=== PATIENT | male | born 1975 | race Caucasian/White ===

== ENCOUNTER 2025-05-30 07:37 | Outpatient (CLI) | payer MEDICAID, SELFPAY ==
--- OUTSIDE RECORDS SUMMARY | 2021-11-14 09:36 | XMS_ITS | Encounter Summary ---
Author Organization [facility] Address [address] [place] [address] Care Team Providers Care Sock Drier Name Role Phone Aneudy Bryant MD Primary Care Provider Encounter Details Date Type Department Care Team (Late st Contact Info) Description 11/14/2021 10:36 AM EDT Hospital Encounter [facility] PULMONARY & CRITICAL CARE MEDICINE [address] [place] [id number] Social History Tobacco Use Types Packs/Day Years [...] on filedocumented in this encounter Care Teams Sock Drier Relationship Specialty Start Date End Date Aneudy Bryant MD PCP - General Emergency Medicine 11/07/21 documented as of this encounter
--- OUTSIDE RECORDS SUMMARY | 2025-05-30 07:40 | XMS_ITS | Clinical Summary ---
Author Organization [facility] Address [address] [place] [address] Care Team Providers Care Assisted Living Nursing Director Name Role Phone Noris Carroll APRN Primary Care Provider [phone] Allergies No known active allergies Medications montelukast (Singulair) 10 MG tablet TAKE 1 TABLET BY MOUTH ONCE DAILY AT BEDTIME FOR 30 DAYS 03/01/2021 Active cetirizine (ZyrTEC) 10 MG tablet Take 10 mg by mouth 1 (one) time each day. 03/01/2021 Active Stiolto Respimat 2.5-2.5 MCG/ACT aerosol solution inhaler INHALE 2 PUFFS BY MOUTH ONCE DAILY 03/01/2021 Active ProAir HFA 108 (90 Base) MCG/ACT inhaler INHALE 1 PUFF BY MOUTH EVERY 6 HOURS NEEDED 08/28/2020 Active Social History Tobacco Use Types Packs/Day Years Used Date Smoking Tobacco: Every Day Cigarettes Smokeless Tobacco: Former Alcohol Use Standard Drinks/Week Comments Yes 0 (1 standard drink = 0.6 oz pur e alcohol) occasionally PHQ-2 Answer Date Recorded Patient Health Questionnaire-2 Score 0 03/06/2021 Sex and Gender Information Value Date Recorded Sex Assigned at Not on file Legal Sex Male 8:12 PM EDT Gender Identity Not on file Sexual Orientation Not on file Last Filed Vital Signs Vital Sign Reading Time Taken Comments Blood Pressure 110/74 04/21/2021 9:33 AM EDT Pulse 75 04/21/2021 9:33 AM EDT Temperature 36.8 C (98.2 F) 04/21/2021 9:33 AM EDT Respiratory Rate - - Oxygen Saturation 97% 04/21/2021 9:33 AM EDT Inhaled Oxygen Concentration - - Weight 54.7 kg (120 lb 11.2 oz) 04/21/2021 9:33 AM EDT Height 170.2 cm (5' 7 ) 04/21/2021 9:33 AM EDT Body Mass Index 18.9 04/21/2021 9:33 AM EDT Plan of Treatment Health Maintenance Due Date Last Done Comments [facility]-Depression Screening 1973 [facility]-/Child/Adol SDOH Screenings 1975 [facility]- SDOH Screenings 1991 [facility]-Adult SDOH Screenings 1991 [facility]-DTaP,Tdap,and Td Vaccine s (1 - Tdap) 01/25/1992 [facility]-Hepatitis B Vaccines (1 of 3 - 19+ 3-dose series) 01/25/1992 CT Colonography 2018 Colonoscopy 2018 FIT-DNA 2018 FIT 2018 FOBT 2018 Sigmoidoscopy 2018 [facility]-Colorectal Cancer Screening 2018 [facility]-Pneumococcal Vaccine: 50 + Years (1 of 1 - PCV) 2023 [facility]-Zoster Vaccines (1 of 2) 2023 [id number] Vaccine (3 - 2024- season) 2025 02/26/2021, 01/27/2021 [facility]-Influenza Vaccine (#1) 2025 HPV Vaccines Aged Out No longer eligi ble based on patient's age to complete this topic [facility]-HIB Vaccines Aged Out No longer e ligible based on patient's age to complete this topic [facility]-Hepatitis A Vaccines Aged Out No longer eligible based on patient's age to complete this topic [facility]-IPV Vaccines Aged Out No longer e ligible based on patient's age to complete this topic [facility]-Rotavirus Vaccines Aged Out No lo nger eligible based on patient's age to complete this topic Insurance [employer] [place] Care Teams Assisted Living Nursing Director Relationship Specialty Start Date End Date Noris Carroll APRN [address] [place] [address] PCP - General 03/06/21
--- OUTSIDE RECORDS SUMMARY | 2025-05-30 07:40 | XMS_ITS | Clinical Summary ---
Author Organization [facility] Address [address] [place] [address] Care Team Providers Care Supervisor Propellant Charge Loading Name Role Phone Aneudy Bryant MD Primary Care Provider Allergies No known active allergies Medications azithromycin (ZITHROMAX Z-LOS) 250 MG tablet Take 2 tablets the first day, then 1 tablet daily for 4 days. 6 tablet 9 Active formoterol (Perforomist) 20 MCG/2ML nebulizer solution Take 2 mL by nebulization 2 (Two) Times a Day. 60 each 2 Active budesonide (Pulmicort) 0.5 MG/2ML nebulizer solution Take 2 mL by nebulization 2 (Two) Times a Day. Being sent through pharmacy and DME, patient can fill whichever is cheapest 60 each 2 Active albuterol sulfate HFA 108 (90 Base) MCG/ACT inhaler Inhale 2 puffs Every 4 (Four) Hours As Needed for Wheezing or Shortness of Air. 18 g 2 Active tiotropium bromide monohydrate (Spiriva Respimat) 2.5 MCG/ACT aerosol solution inhaler Inhale 2 puffs Daily. 1 each 2 Active Active Problems No known active problems Social History Tobacco Use Types Packs/Day Years Used Date Smoking Tobacco: Every Day Cigarettes 1 30 Smokeless Tobacco: Never Tobacco Cessation:Ready to Q uit: Yes Alcohol Use Standard Drinks/Week Comments Not Currently [...] Sign Reading Time Taken Comments Blood Pressure 108/70 11/14/2021 10:01 AM EDT Pulse 79 11/14/2021 10:01 AM EDT Temperature 37 C (98.6 F) 11/14/2021 10:01 AM EDT Respiratory Rate 18 11/14/2021 10:0 1 AM EDT Oxygen Saturation 97% 11/14/2021 10: 01 AM EDT room air at rest Inhaled Oxygen Concentration - - Weight 49.9 kg (110 lb) 11/14/2021 10:0 1 AM EDT Height 167.6 cm (5' 6 ) 06/13/2019 4:14 PM EST Body Mass Index 17.75 06/13/2019 4:14 PM EST Plan of Treatment Health Maintenance Due Date Last Done Comments TDAP/TD VACCINES (1 - Tdap) 01/25/1992 COLOGUARD 2018 COLON CANCER SCREENING 5 YEAR SIGMOIDOSCOPY 2018 COLONOSCOPY 2018 COLORECTAL CANCER SCREENING 2018 CT COLONOGRAPHY 2018 FECAL OCCULT BLOOD TEST 2018 FIT Testing (1 year) 2018 ANNUAL PHYSICAL 05/04/2019 HEPATITIS C SCREENING 05/04/2019 Pneumococcal Vaccine 50+ (1 of 1 - PCV) 2023 ZOSTER VACCINE (1 of 2) 2023 INFLUENZA VACCINE 02/02/2025 Insurance [employer] Care Teams Supervisor Propellant Charge Loading Relationship Specialty Start Date End Date Aneudy Bryant MD PCP - General Emergency Medicine 11/07/21
--- NOTE | 2025-05-30 09:30 | FL_ITS ---
FINAL REPORT CLINICAL HISTORY: Dysphagia 1:23 FLUORO TIME 13.58 mGy FINDINGS: ESOPHAGRAM Radiation dose in reference to Air-Kerma: 13.58 mGy. HISTORY: Dysphagia. PROCEDURE: The patient ingested barium. Effervescent crystals were also administered. Fluoroscopic spot films were obtained. FINDINGS: The esophagus is normal. There is no hiatal hernia. There is no gastroesophageal reflux. Peristalsis is normal. A 13 mm barium tablet passes through the esophagus and into the stomach without delay. IMPRESSION: Normal esophagram. Reviewed, Interpreted and Dictated by Isha Ruiz MD Transcribed by MASSIEL Kimbruogh Authenticated and [facility]
[2025-05-30] MEDS: E-Z-GASII EFFERVESCENT GRANULES;1PK 1 EACH PO (09:35)
[2025-05-30] MEDS: BARIUM SULFATE(LIQUID E-Z-PAQUE);355ML BOTTLE 355 ML PO (09:35)
[2025-05-30] MEDS: BARIUM SULFATE (E-Z-HD 340GM);135ML BOTTLE 135 ML PO (09:35)
== END 2025-05-30 23:59 | disposition home or self-care (01) ==
LOC: RT 07:38
PROVIDERS: PCP Emergency Medicine; Visit Provider Internal Medicine Pulmonary Disease
DX: R13.10 Dysphagia, unspecified (principal)
CPT/HCPCS: 74220

== ENCOUNTER 2025-06-08 09:36 | Outpatient (CLI) | payer MEDICAID, SELFPAY ==
[2025-06-08] MEDS: ALBUTEROL 0.083% 2.5 MG/3 ML NEB IH (10:46)
== END 2025-06-08 23:59 | disposition home or self-care (01) ==
LOC: RT 09:36
PROVIDERS: PCP Emergency Medicine; Visit Provider Internal Medicine Pulmonary Disease
DX: J44.9 Chronic obstructive pulmonary disease, unspecified (principal); R94.2 Abnormal results of pulmonary function studies
CPT/HCPCS: 94060; 94618; 94726; 94729

== ENCOUNTER 2025-06-11 14:49 | Outpatient (CLI) | payer MEDICAID, SELFPAY | END 2025-06-11 23:59 | disposition home or self-care (01) | LOC: RT 14:49 | PROVIDERS: PCP Emergency Medicine; Visit Provider Nurse Practitioner | DX: R94.31 Abnormal electrocardiogram [ECG] [EKG] (principal); R06.00 Dyspnea, unspecified; R00.2 Palpitations ==

== ENCOUNTER 2025-07-04 07:42 | Outpatient (CLI) | payer MEDICAID, SELFPAY ==
--- OUTSIDE RECORDS SUMMARY | 2021-11-14 09:36 | XMS_ITS | Encounter Summary ---
Author Organization [facility] Address [address] [place] [address] Care Team Providers Care Venetian Blind Worker Name Role Phone Aneudy Bryant MD Primary Care Provider [phone] Encounter Details Date Type Department Care Team (Late st Contact Info) Description 11/14/2021 10:36 AM EDT Hospital Encounter [facility] PULMONARY & CRITICAL CARE MEDICINE [address] [place] [id number] Social History Tobacco Use Types Packs/Day Years Used Date Smoking Tobacco: Every Day Cigarettes 1 30 Smokeless Tobacco: Never Alcohol Use Standard Drinks/Week Comments Not Currently 0 (1 standard drink = 0.6 oz pur e alcohol) Abuse Screen Answer Date Recorded Unsafe at Home or Work/School Not on file Feels Threatened by Someone? Not on file 03/2023 Does Anyone Keep You from Co ntacting Others or Doint Things Outside the Home? Not on file 04/12/2023 Physical Sign of Abuse Present Not on file 1 Housing Stability Answer Date Recorded Current Living Arrangements Not on file 03/2023 Potentially Unsafe Housing Conditions Not on antonette e 04/12/2023 Family and Community Support Answer William e Recorded Help with Day-to-Day Activities Not on file 04/12/2023 Lonely or Isolated Not on file 04/12/2023 Employment Answer Date Recorded Do you want help finding or keeping work or a thom b? Not on file 04/12/2023 Disabilities Answer Date Recorded Concentrating, Remembering, or Making Decisions Difficulty Not on file 04/12/2023 Doing Errands Independently Difficulty Not on fi le 04/12/2023 Education Answer Date Recorded Help with school or training? Not on file Preferred Language Not on file 04/12/2023 Sex and Gender Information Value Date Recorded Sex Assigned at Not on file Legal Sex Male 10:40 AM EDT Gender Identity Not on file Sexual Orientation Not on file documented as of this encounter Plan of Treatment Not on file documented as of this encounter Procedures Procedure Name Priority Date/Time Associated Diagnosis Comments XR CHEST PA AND LATERAL Routine 11/14/2021 10:40 AM EDT Pneumonia of right lung due to infectious organism, unspecified part of lung documented in this encounter Results * XR Chest PA & Lateral (11/14/2021 10:40 AM EDT) Anatomical Region Laterality Modality Body, Chest N/A Radiographic [place] ging Narrative 12/05/2021 12:32 PM EDT trachea is midline cardiac silhouette is normal cardiophrenic and costophrenic angles are clear. There is extensive right midlung airspace disease as well as severe bullous emphysema in the bilateral upper lobes, left greater than right.The lungs are hyperinflated and the patient is barrel chested. Overall appears unchanged from 10/25/2021. us Ian Benavidez MD IMG DIAGNOSTIC [place] [facility] ORDERABLES Final Result documented in this encounter Visit Diagnoses Not on filedocumented in this encounter Care Teams Venetian Blind Worker Relationship Specialty Start Date End Date Aneudy Bryant MD PCP - General Emergency Medicine 11/07/21 documented as of this encounter
--- NOTE | 2025-07-04 | CA_ITS ---
APPROVED REPORT Exam: Pharmacologic Technologist: Betty Wong Ht: 5 ft 7 in Wt: 121 lbs BSA: 1.63 m2 HR: 68 bpm BP: 145/75 mmHg Indications: Abnormal electrocardiogram, palpitations, dyspnea. Stress Test Details Test: Lexiscan HR Resting HR: 68 bpm Max Heart Rate (APMHR): 168.866771 bpm Max HR Achieved: 111 bpm Target HR (85% APMHR): 142.761108 bpm % of APMHR: 66.07 Recovery HR: 94 bpm BP Resting BP: 146.0/75.0 mmHg Max BP: 131.0/68.0 mmHg Recovery BP: 111.0/72.0 mmHg ECG Resting ECG: Normal sinus rhythm Stress ECG Conclusion Symptoms:None Arrhythmias/Ectopy: None ST-T Changes: < 1.[address] segment changes Conclusion: Non-diagnostic Lexiscan stress. Electronically signed by : Keisha Walker MD 07/06/2025 14:47:26
--- NOTE | 2025-07-04 07:30 | NM_ITS ---
APPROVED REPORT Exam: Nuclear Stress Test Indication: SOB, Palpitations, HTN, High cholesterol, Former tobacco use, Family history Patient Location: Outpatient Stress Tech: Betty Wong [place] Tech:Ema Damon, ARRT, RT (R)(N) Ht: 5 ft 7 in Wt: 125 lbs HR: 85 bpm BP: 146/75 mmHg BSA: 1.66 m2 TID: 0.85 BMI: 19.5 History: SOB, Palpitations, HTN, High cholesterol, Former tobacco use, Family history Procedure: Patient received 0.4 mg of intravenous Lexiscan, resting heart rate 85 bpm, resting blood pressure 146/75 mmHg, with Lexiscan maximum heart rate achieved was 111 bpm which is % of the maximum predicted heart rate and blood pressure was 131/68 mmHg. With Lexiscan, patient denied any complaint of chest pain. Cardiac Stress and Resting SPECT Images: Cardiac Stress and Resting SPECT images were obtained using technetium 99m Myoview 32.8 mCi stress and 10.58 mCi at rest. Resting and stress imaging in supine and prone positions demonstrate a small-sized, moderate, partially reversible perfusion defect in the apical LV wall. Gated imaging demonstrates low-normal global LV systolic function. LVEF is calculated at 51%. Conclusion: Small-sized, moderate, partially reversible perfusion defect in the apical LV wall. Findings are suggestive of partial reversible ischemia. Gated imaging demonstrates low-normal global LV systolic function. LVEF is calculated at 51%. Electronically signed by : Keisha Walker MD 07/06/2025 14:33:50
--- OUTSIDE RECORDS SUMMARY | 2025-07-04 07:44 | XMS_ITS | Clinical Summary ---
Author Organization [facility] Address [address] [place] [address] Care Team Providers Care Junior High School Teacher Name Role Phone Aneudy Bryant MD Primary Care Provider [phone] Allergies No known active allergies Medications azithromycin [...] 02/02/2025 Insurance [employer] Care Teams Junior High School Teacher Relationship Specialty Start Date End Date Aneudy Bryant MD PCP - General Emergency Medicine 11/07/21
--- OUTSIDE RECORDS SUMMARY | 2025-07-04 07:44 | XMS_ITS | Clinical Summary ---
Author Organization [facility] Address [address] [place] [address] Care Team Providers Care Mental Health Advanced Practice Nurse Name Role Phone Noris Carroll APRN Primary Care Provider [phone] Allergies No known active allergies Medications montelukast [...] 2023 [facility]-Zoster Vaccines (1 of 2) 2023 [id number] Vaccine (3 - 2024- season) 2025 02/26/2021, 01/27/2021 [facility]-Influenza Vaccine (#1) 2025 HPV Vaccines (No Doses Required) Completed [facility]-HIB Vaccines Aged Out No longer e [...] to complete this topic Insurance [employer] [place] Care Teams Mental Health Advanced Practice Nurse Relationship Specialty Start Date End Date Noris Carroll APRN [address] [place] [address] PCP - General 03/06/21
[2025-07-04] MEDS: ISOTOPE MYOVIEW (PER STUDY) 1 DOSE IV (09:17)
[2025-07-04] MEDS: SODIUM CHLORIDE 0.9% 10ML SYR (RAD ONLY) 10 ML IV ×2 (09:17)
== END 2025-07-04 23:59 | disposition home or self-care (01) ==
PROVIDERS: PCP Emergency Medicine; Visit Provider Nurse Practitioner
DX: E78.00 Pure hypercholesterolemia, unspecified (principal); I10 Essential (primary) hypertension; R94.39 Abnormal result of other cardiovascular function study; R06.02 Shortness of breath; R00.2 Palpitations; Z87.891 Personal history of nicotine dependence
CPT/HCPCS: 78452; 93017; 93018; A9502; J2785